=== PATIENT | male | born 1980 | race Caucasian/White ===

== ENCOUNTER 2021-08-13 13:43 | Outpatient (REF) | payer OTHER, SELFPAY ==
--- NOTE | ~2021-08-13 | MR_ITS ---
EXAMINATION: MR BRAIN WITHOUT AND WITH CONTRAST CLINICAL INFORMATION: Right eye blurred vision. Headaches. COMPARISON: MRI dated 11/06/2020. TECHNIQUE: Multiplanar, multisequence imaging of the brain was performed before and after the intravenous administration of 8 mL of Gadavist. FINDINGS: No diffusion abnormalities are identified to suggest an acute infarct. The ventricles are normal in size. No mass effect or midline shift is seen. A subcentimeter focus of T2 hyperintense signal change in the right frontal centrum semiovale is stable, measuring 1.3 cm CC x 0.6 cm AP. There is an additional punctate focus of T2 hyperintensity in the subcortical white matter of the right cingulate gyrus. The corpus callosum appears normal. No extra-axial fluid collections are seen. The brainstem and cerebellum are normal. There is no abnormal parenchymal or leptomeningeal enhancement. The gradient refocused acquisition demonstrates no pathologic magnetic susceptibility artifact to indicate underlying acute or chronic blood products. Although not targeted for evaluation, the orbits are grossly normal. The craniovertebral junction, marrow signal, and midline structures are normal. The major intracranial flow-voids at the level of the solomon of [place] are preserved. The dural venous sinus flow-voids are maintained. The mastoid air cells are well aerated. There are retention cysts along the floors of the maxillary sinuses with mild ethmoid sinus mucosal thickening. MR/MR head/brain wo/w con IMPRESSION: Stable nonspecific white matter signal changes in the right frontal pathak radiata and in the subcortical white matter of the right cingulate gyrus. No abnormal enhancement. No new white matter signal abnormalities or acute process.
== END 2021-08-13 13:44 | disposition home or self-care (01) ==
LOC: HO.MRI 13:43
PROVIDERS: PCP Physician Assistant Medical; Visit Provider Psychiatry & Neurology Neurology
DX: H46.9 Unspecified optic neuritis (principal); G37.9 Demyelinating disease of central nervous system, unspecified
CPT/HCPCS: 70553; A9585

== ENCOUNTER 2025-05-08 14:29 | Outpatient (AMB) | payer OTHER, SELFPAY ==
--- NOTE | 2025-05-08 14:31 | A.OFFVIS_ITS ---
Vital Signs 05/08/25 14:33 Height 5 ft 7 in Weight 186 lb 4.65 oz BMI 29.2 BP 108/64 Blood Pressure Location Rt brachial Position Sitting Pulse 89 Pulse Source Pulse Oximeter Pulse Oximetry (%) 96 Oxygen Delivery Method Room Air Intake Visit Reasons: Elevated alkaline phosphate level Intake Note: New patient externally referred by PCP for Elevated Alkaline Phosphate Level. Scrum Product Owner Required: No Accompanied by: Self / Same As Patient Allergies No Known Allergies Allergy (Verified 05/08/25 14:33) Medication List - Last Reconciled 05/08/25 by Rohit Readron MD cholecalciferol (vitamin D3) 125 mcg PO DAILY magnesium glycinate mg PO omega 9-csw-[id number]-fish oil 1,200 (144-216) mg (Fish Oil) caps PO vitamin K2 100 mcg PO DAILY whey protein concentrate mg PO HPI Comments Details: 44-year-old male sent to endocrinology for evaluation of alkaline phosphatase level elevated at 180. Apparently, patient saw endocrinology at [facility]. Office visit notes from that appointments are not available at time of consultation. Patient denies history of fracture. Patient denies bone pain. Patient has occasional headache. Patient denies loss of hearing. No bone specific alk phos Had nl PSA The patient is a 44-year-old male presenting with elevated alkaline phosphatase levels for evaluation. The elevated alkaline phosphatase was initially discovered during a routine blood test approximately ten years ago. Subsequent investigations included a bone density scan revealing osteopenia and a vitamin D deficiency, which was treated with high-dose vitamin D supplementation. Despite vitamin D supplementation, the alkaline phosphatase levels remained elevated, prompting further evaluation by an magnetic testing technician. The patient underwent a liver ultrasound and a bone scan, both of which were reported as normal. The patient has been advised to undergo fractionated alkaline phosphatase testing to determine the source of the elevation. 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 An MRI revealed a white matter lesion in the brain, initially suspected to be multiple sclerosis, but later deemed benign by a neurologist. The patient has a family history of amyotrophic lateral sclerosis (ALS) and reports occasional headaches and muscle pain attributed to gym activities. He denies any bone pain or fractures. The patient has been informed of a possible diagnosis of Paget's disease due to the persistent elevation of alkaline phosphatase, although no definitive diagnosis has been made. He is currently being monitored for pre-diabetes, with an A1c level of 5.8%. - Vitamin D: 5,000 IU daily for vitamin D deficiency We will also check [facility] Medical History (Updated 05/08/25 @ 14:42 by Rohit Reardon MD) Blood alkaline phosphatase increased compared with prior measurement Surgical History Hx of wisdom tooth extraction Family History Mother Diabetes Father Glaucoma Social History Alcohol intake: current Alcohol intake frequency: holidays/special occasions only Patient Tobacco Use Status: Never used Tobacco Physical Exam Vital Signs: Last Vital Signs Pulse 89 05/08/25 14:33 BP 108/64 05/08/25 14:33 Pulse Ox 96 05/08/25 14:33 Oxygen Delivery Method Room Air 05/08/25 14:33 BMI result Body Mass Index 29.2 Const Other: The absence of enlarged skull or warmness over the skull. Absence of both extremities. Assessment & Plan Assessment & Plan (1) Blood alkaline phosphatase increased compared with prior measurement: Code(s): R74.8 - Abnormal levels of other serum enzymes Category: Medical Plan: This is a 44-year-old male with a history of reported increased alk-phos. Do not have prior records from previous consult. We will request records from previous endocrinology appointment in [place]. We will also check alkaline phosphatase bone specific as well as repeat 25 hydroxy vitamin-D. Further workup based on the above. We will also try to request bone scan that was previously done at [place] several years ago 1. Elevated alkaline phosphatase The patient has a long-standing elevation in alkaline phosphatase levels, initially discovered during routine testing. Despite vitamin D supplementation, levels remain elevated. A fractionated alkaline phosphatase test is planned to determine the source of elevation. Previous liver ultrasound and bone scan were normal, reducing the likelihood of liver or bone pathology. Monitoring and furth er evaluation for Paget's disease are considered, although unlikely considering normal bone scan of the past and no definitive diagnosis has been made. During the consultation, I discussed with the patient the potential causes of elevated alkaline phosphatase, including Paget's disease, and the need for fractionated testing to determine the source. We reviewed the normal results of previous liver ultrasound and bone scan, and I explained that these findings reduce the likelihood of significant liver or bone pathology. I advised continued vitamin D supplementation and monitoring for osteopenia. We also discussed the benign nature of the white matter lesion in the brain and the management of pre-diabetes through lifestyle modifications. Follow-up was planned to reassess the alkaline phosphatase levels and review any new findings. - Continue taking vitamin D as prescribed. - Schedule a blood test for fractionated alkaline phosphatase levels. - Monitor blood sugar levels and maintain a healthy lifestyle to manage pre- diabetes. - Follow up in three months to review test results and discuss further management. T The patient had an opportunity to ask questions regarding treatment plan. The patient expressed understanding and agreement with the above treatment plan. Patient was informed and verbally consented to the use of an ambient scribe for clinic note documentation during this visit. Orders: Orders Alkaline Phosphatase Bone Today R74.8 - Abnormal levels of other serum enzymes Vitamin D 25-OH Total Today R74.8 - Abnormal levels of other serum enzymes Coding Level of Care Code New Pt Level 4 (12072) Diagnoses Blood alkaline phosphatase increased compared with prior measurement R74.8
[2025-05-08 14:33] VITALS: BP 108/64; PULSE 89; O2SAT 96; BMI 29.2
--- OUTSIDE RECORDS SUMMARY | 2025-05-08 18:14 | XMS_ITS | Clinical Summary ---
Author Organization [facility] [address] [facility] Building Address [address] [place] [address] Phone Care Team Providers Care Electronic Controls Repairer Supervisor Name Role Phone Quyen Gurrola MD Primary Care Provider [phone] Allergies Active Allergy Reactions Criticality Noted Date Comments Clindamycin 04/19/2017 Rash with oral but ok with topical Medications cholecalciferol (VITAMIN D-3) 25 mcg (1,000 unit) tablet Take 5 tablets (5,000 Units total) by mouth 1 (one) time each day. Active famotidine (PEPCID) 20 mg tablet Take 1 tablet (20 mg total) by mouth. 3 Active MAGNESIUM CITRATE ORAL Take by mouth. Ac tive CREATINE MONOHYDRATE ORAL Take 5 g by mouth 1 (one) time each day. With whey Active ASHWAGANDHA EXTRACT ORAL Take 1 tablet by mouth 1 (one) time each day. Active clindamycin (CLEOCIN T) 1 % lotionIndication s:Acne, unspecified acne type Apply topically 1 (one) time each day. 60 mL 1 5 06/10/20 25 Active famotidine (PEPCID) 20 mg tabletIndication s:Gastroesophage al reflux disease, unspecified whether esophagitis present Take 1 tablet (20 mg total) by mouth 2 (two) times a day. 60 tablet 1 5 Active Additional Information Patient not taking.Reported on 02/01/2025 hydrOXYzine HCL (ATARAX) 10 mg tablet Take 1 tablet (10 mg total) by mouth at bedtime as needed for itching. 90 tablet 5 07/31/20 25 Active Active Problems Problem Noted Date Diagnosed Date Burping 06/14/2024 GERD (gastroesophageal reflux disease) 4 Postprandial epigastric pain 06/14/2024 Pure hypercholesterolemia 02/01/2024 Osteopenia 03/15/2023 Anxiety 10/28/2020 Snoring 03/10/2019 Overview (06/14/2024): 02/2019 Home Sleep Study did not reveal sleep apnea or nocturnal hypoxia. Vitamin D deficiency 02/27/2019 Elevated alkaline phosphatase level 08/29/2015 Encounters Date Type Department Care Team Description 05/08/2025 Telephone Internal Medicine - [facility] [address] [place] [address] Quyen Gurrola MD from Last 3 Months Immunizations Name Administration Dates Next Due HPV 9-valent (Gardisil) 9yo to less than 46yo 10/13/2023,06/12/2023,02/10/2022 Influenza Quadravalent, MDCK , 0.5ml, preservative free (Flucelvax) 6mo and older 07/19/2023 Influenza trivalent, 0.5mL, preservative free (Fluarix; FluLaval; Fluzone) ages 6mo and older (Afluria) 3 years and older 06/10/2022 Burst Media SARS-CoV-2 COVID-19, mRNA, LNP-S, preservative free 05/04/2021 Tdap Tetanus diptheria acell ular pertussis (Boostrix; Adacel) 7yo and older 10/04/2017 Surgical History Surgery Date Site/Laterality Comments WISDOM TOOTH EXTRACTION PROCEDURE: HISTORICAL WISDOM TEETH EXTRACTION Medical History Medical History Date Comments Gastritis DX:Gastritis GERD (gastroesophageal reflux disease) DX:GERD (gastroesophageal reflux disease) Postprandial epigastric pain DX: Postprandial epigastric pain Burping DX:Burping H/O Helicobacter infection DX:H/ O Helicobacter infection Heartburn DX:Heartburn Postprandial epigastric pain DX: Postprandial epigastric pain Abnormal large bowel motility DX :Abnormal large bowel motility Family History Medical History Relation Name Comments No Known Problems Brother 1 ALS Brother 2 No Known Problems Brother 3 No Known Problems Brother 4 Glaucoma Father Diabetes Mother No Known Problems Sister 1 No Known Problems Sister 2 Relation Name Status Comments Brother 1 Alive x4 - Healthy Brother 2 Brother 3 Alive Brother 4 Alive Father Alive Glaucoma Mother Alive DM Sister 1 Alive x2 - Healthy Sister 2 Alive Social History Tobacco Use Types Packs/Day Years Used Date Smoking Tobacco: Never Smokeless Tobacco: Never Tobacco Cessation:Counseling Given: Not Answered Alcohol Use Standard Drinks/Week Comments No 0 (1 standard drink = 0.6 oz pur e alcohol) Sex and Gender Information Value Date Recorded Sex Assigned at Not on file Legal Sex Male 9:14 PM EST Gender Identity Male 12/13/2024 1:01 AM EDT Sexual Orientation Straight 12/13/2024 1: 01 AM EDT Obstetrics History Last Filed Vital Signs Vital Sign Reading Time Taken Comments Blood Pressure 108/54 02/01/2025 11:57 AM EDT Pulse 62 02/01/2025 11:57 AM EDT Temperature - - Respiratory Rate 16 02/01/2025 11:57 AM EDT Oxygen Saturation - - Inhaled Oxygen Concentration - - Weight 82.1 kg (181 lb) 02/01/2025 11:57 AM EDT Height 170.2 cm (5' 7 ) 03/21/2024 4:06 PM EDT Body Mass Index 28.35 03/21/2024 4:06 PM EDT Plan of Treatment Upcoming Encounters Date Type Department Care Team (Late st Contact Info) Description 05/23/2025 11:00 AM EDT Consult Orthopedic Surgery - [place] [id number] [phone] Genaro Fink DPM [address] [address] 02/05/2026 4:00 PM EDT Office Visit [facility] - [facility] [address] [place], [place] [phone] Quyen Gurrola MD [address] [place], [place] Health Maintenance Due Date Last Done Comments Hepatitis B Vaccines (1 of 3 - 19+ 3-dose series) 2001 Hepatitis C Screening 08/01/2022 Social Influencers of Health Screening 08/01/2022 Depression Screening 08/23/2024 COVID-19 Vaccine (3 - 2024-2 6 season) 2025 05/04/2021, 04/04/2021 Influenza Vaccine (#1) 2025 , 07/19/2023, 06/10/2022 DTaP,Tdap,and Td Vaccines (2 - Td or Tdap) 10/04/2027 10/04/2017 Cholesterol Screening (Lipid Panel) 02/06/2030 02/06/2025, 02/02/2024, 02/02/2024 HPV Vaccines Completed 10/13/2023, 06/12/2023, 02/10/2022 HIV Screening Completed 02/06/2025, 02/02/2024 HIB Vaccines Aged Out No longer eligi ble based on patient's age to complete this topic Hepatitis A Vaccines Aged Out No long er eligible based on patient's age to complete this topic IPV Vaccines Aged Out No longer eligi ble based on patient's age to complete this topic MMR Vaccines Aged Out No longer eligi ble based on patient's age to complete this topic Meningococcal ACWY Vaccine Aged Out N o longer eligible based on patient's age to complete this topic Meningococcal B Vaccine Aged Out No l onger eligible based on patient's age to complete this topic Pneumococcal Vaccine: Pediatrics (0 to 5 Years) and At-Risk Patients (6 to 49 Years) Aged Out No longer eligible b ased on patient's age to complete this topic RSV Immunization Patients Under 20 months Aged Out No longer eligible b ased on patient's age to complete this topic Varicella Vaccines Aged Out No longer eligible based on patient's age to complete this topic Procedures Procedure Name Priority Date/Time Associated Diagnosis Comments CHLAMYDIA TRACHOMATIS AND NEISSERIA GONORRHOEAE PCR Routine 02/13/2025 10:05 AM EDT Screen for STD (sexually transmitted disease) VITAMIN B12 AND FOLATE Routine 9:56 AM EDT B12 deficiency VITAMIN D 25 HYDROXY Routine 02/06/2025 9:56 AM EDT Vitamin D deficiency COMPREHENSIVE METABOLIC PANEL Routine 02/06/2025 9:56 AM EDT B12 deficiency LIPID PANEL WITH REFLEX TO DIRECT LDL Routine 02/06/2025 9:56 AM EDT B12 deficiency THYROID STIMULATING HORMONE WITH REFLEX TO FREE T4 AND FREE T3 Routine 02/06/2025 9:56 AM EDT Insomnia, unspecified type PROSTATE SPECIFIC ANTIGEN SCREEN Routine 02/06/2025 9:56 AM EDT Family hx of prostate cancer C-REACTIVE PROTEIN Routine 02/06/2025 9: 56 AM EDT Alopecia HEMOGLOBIN A1C Routine 02/06/2025 9:56 AM EDT Health maintenance examination HIV 1, 2 ANTIBODY, P24 ANTIGEN WITH REFLEX TO DIFFERENTIATION Routine 02/06/2025 9:56 AM EDT Screen for STD (sexually transmitted disease) TREPONEMA PALLIDUM ANTIBODY WITH REFLEX TO RPR AND PARTICLE AGGLUTINATION Routine 02/06/2025 9:56 AM EDT Screen for STD (sexually transmitted disease) HERPES SIMPLEX VIRUS 1 AND 2 PCR, QUALITATIVE Routine 02/06/2025 9:56 AM EDT Screen for STD (sexually transmitted disease) from Last 3 Months Results * Chlamydia trachomatis and Neisseria gonorrhoeae molecular study (02/13/2025 10:05 AM EDT) Neisseria gonorrhoeae PCR Negative Negative LAB MOLECULAR DIAGNOSTICS METHOD 02/13/2025 2:33 PM EDT [facility] Chlamydia trachomatis PCR Negative Negative LAB MOLECULAR DIAGNOSTICS METHOD 02/13/2025 2:33 PM EDT [facility] Urine First stream urine specimen / Unknown Non-blood Collection / Unknown 02/13/2025 10:05 AM EDT 02/13/2025 10:05 AM EDT [facility] MICROBIOLOGY - GENE RAL ORDERABLES Final Result Performing Organization Address [facility]/ZIP Co de Phone Number [facility] [address] [place] [address], * Prostate specific antigen screen (02/06/2025 9:56 AM EDT) PSA 0.79 0.00 - 4.00 ng/mL LAB CHEMISTRY METHOD 02/06/2025 4:40 PM EDT [facility] Blood Venous blood specimen / Unknown Venipuncture / Unknown 02/06/2025 9:56 AM EDT 02/06/2025 9:56 AM EDT Narrative [facility] - 02/06/2025 4:40 PM EDT The Siemens Advia Centaur Chemiluminescent Immunoassay is used. Results obtained with different assay methods or kits cannot be used interchangeably. Results cannot be interpreted as absolute evidence of the presence or absence of malignant disease. [facility] BLOOD ORDERABLES Fi nal Result Performing Organization Address [facility] de Phone Number [facility] [address] [place] [address], * HIV 1,2 antibody, p24 antigen with reflex to differentiation (02/06/2025 9:56 AM EDT) Pathologist [facility] HIV Combo AB/AG Negative Negative LAB CHEMISTRY METHOD 02/06/2025 5:20 PM EDT [facility] Blood Venous blood specimen / Unknown Venipuncture / Unknown 02/06/2025 9:56 AM EDT 02/06/2025 9:56 AM EDT Narrative [facility] - 02/06/2025 5:20 PM EDT This assay is a 4th generation assay allowing for earlier detection of HIV infection by detecting the presence of the HIV-1 p24 antigen as well as the traditional antibodies to HIV type 1 (including group O) and type 2. Use of a 4th generation assay is the current CDC recommendation for HIV screening. [facility] BLOOD ORDERABLES Fi nal Result Performing Organization Address [facility] Co de Phone Number [facility] [address] [place] [address], [place] [phone] * Treponema pallidum antibody with reflex to RPR and particle agglutination (02/06/2025 9:56 AM EDT) T. Pallidum Antibodies Negative Negative LAB CHEMISTRY METHOD 02/06/2025 6:15 PM EDT [facility] Blood Venous blood specimen / Unknown Venipuncture / Unknown 02/06/2025 9:56 AM EDT 02/06/2025 9:56 AM EDT [facility] BLOOD ORDERABLES Fi nal Result Performing Organization Address [facility] de Phone Number [facility] [address] [place] [address], [place] [phone] * Thyroid stimulating hormone with reflex to free t4 and free t3 (02/06/2025 9:56 AM EDT) TSH 1.62 0.40 - 4.00 mcIU/mL LAB CHEMISTRY METHOD 02/06/2025 6:04 PM EDT [facility] Blood Venous blood specimen / Unknown Venipuncture / Unknown 02/06/2025 9:56 AM EDT 02/06/2025 9:56 AM EDT [facility] BLOOD ORDERABLES Fi nal Result Performing Organization Address [facility] Co de Phone Number [facility] [address] [place] [address], [place] [phone] * (ABNORMAL) Vitamin B12 and folate (02/06/2025 9:56 AM EDT) Pathologist [facility] Vitamin B-12 353 250 - 900 pcg/mL LAB CHEMISTRY METHOD 02/06/2025 3:56 PM EDT [facility] Folate 18.7(H) 2.8 - 17.0 ng/ml LAB CHEMISTRY METHOD 02/06/2025 3:56 PM EDT [facility] Blood Venous blood specimen / Unknown Venipuncture / Unknown 02/06/2025 9:56 AM EDT 02/06/2025 9:56 AM EDT [facility] BLOOD ORDERABLES Fi nal Result [facility] [address] [place] [address], * (ABNORMAL) Lipid panel with reflex to direct LDL (02/06/2025 9:56 AM EDT) [facility] Cholesterol 199 0 - 200 mg/dL LAB CHEMISTRY METHOD 02/06/2025 3:56 PM EDT [facility] Triglycerides 57 0 - 150 mg/dL LAB CHEMISTRY METHOD 02/06/2025 3:56 PM T [facility] HDL 52 >=40 mg/dL LAB CHEMISTRY METHOD 02/06/2025 3:56 PM EDT [facility] LDL Calculated 136(H) 0 - 100 mg/dL LAB CHEMISTRY METHOD 02/06/2025 3:56 PM EDT [facility] VLDL Cholesterol Paulo 11.4 mg/dL LAB CHEMISTRY METHOD 02/06/2025 3:56 PM EDT [facility] Non HDL Chol. (LDL+VLDL) 147(H) <145 mg/dL LAB CHEMISTRY METHOD 02/06/2025 3:56 PM EDT [facility] Chol/HDL Ratio 3.8 0.0 - 4.4 LAB CHEMISTRY METHOD 02/06/2025 3:56 PM EDT [facility] Blood Venous blood specimen / Unknown Venipuncture / Unknown 02/06/2025 9:56 AM EDT 02/06/2025 9:56 AM EDT [facility] BLOOD ORDERABLES Fi nal Result Performing Organization Address [facility]/ZIP Co de Phone Number [facility] [address] [place] [address], [place] [phone] * Herpes simplex virus 1 and 2 molecular study, qualitative (02/06/2025 9:56 AM EDT) Specimen Source Blood - Plasma 02/08/2025 10:46 AM EDT [facility] Herpes simplex Virus I Not detected Not detected 02/08/2025 10:46 AM EDT [facility] Herpes simplex Virus II Not detected Not detected 02/08/2025 10:46 AM EDT [facility] Comment: This test utilizes a real-time polymerase chain reaction procedure to amplify and detect portions of the herpes simplex virus glycoprotein G genes. The analytical sensitivity of this assay is 50 copies/mL. A Not detected result does not rule out infection. This test uses commercial reagents that have not been approved or cleared by the FDA. The FDA has determined that such clearance or approval is not necessary. The performance characteristics of this procedure were determined by [facility]. This test is performed pursuant to a license agreement with [employer] Test performed at [facility], [address] , [place] [address] Lolis Jarvis MD, PhD - Trauma Surgeon Blood Venous blood specimen / Unknown Venipuncture / Unknown 02/06/2025 9:56 AM EDT 02/06/2025 9:56 AM EDT [facility] MICROBIOLOGY - GENE RAL ORDERABLES Final Result Performing Organization Address City/[facility]/ZIP Co de Phone Number [facility] [address] [place] [address] * (ABNORMAL) Vitamin D 25 hydroxy (02/06/2025 9:56 AM EDT) [facility] Vit D, 25-Hydroxy 87.1(H) 30.0 - 80.0 ng/mL LAB CHEMISTRY METHOD 02/06/2025 4:38 PM EDT [facility] Blood Venous blood specimen / Unknown Venipuncture / Unknown 02/06/2025 9:56 AM EDT 02/06/2025 9:56 AM EDT [facility] BLOOD ORDERABLES Fi nal Result Performing Organization Address City/[facility]/ZIP Co de Phone Number [facility] [address] [place] [address], [place] [phone] * C-reactive protein (02/06/2025 9:56 AM EDT) [facility] C-Reactive Protein <0.29 <=0.50 mg/dL LAB CHEMISTRY METHOD 02/06/2025 3:56 PM EDT [facility] Blood Venous blood specimen / Unknown Venipuncture / Unknown 02/06/2025 9:56 AM EDT 02/06/2025 9:56 AM EDT [facility] BLOOD ORDERABLES Fi nal Result [facility] [address] [place] [address], [place] [phone] * Hemoglobin A1c (02/06/2025 9:56 AM EDT) [facility] Hemoglobin A1C 5.8 <6.5 % LAB CHEMISTRY METHOD 02/06/2025 1:35 PM EDT [facility] Mean Bld Glu Estim. 120 mg/dL LAB CHEMISTRY METHOD 02/06/2025 1:35 PM EDT [facility] Blood Venous blood specimen / Unknown Venipuncture / Unknown 02/06/2025 9:56 AM EDT 02/06/2025 9:56 AM EDT [facility] BLOOD ORDERABLES Fi nal Result [facility] [address] [place] [address], * (ABNORMAL) Comprehensive metabolic panel (02/06/2025 9:56 AM EDT) Sodium 139 133 - 145 mmol/L LAB CHEMISTRY METHOD 02/06/2025 3:56 PM [facility] Potassium 4.0 3.5 - 5.5 mmol/L LAB CHEMISTRY METHOD 02/06/2025 3:56 PM [facility] Chloride 107 96 - 110 mmol/L LAB CHEMISTRY METHOD 02/06/2025 3:56 PM [facility] CO2 25 21 - 32 mmol/L LAB CHEMISTRY METHOD 02/06/2025 3:56 PM [facility] Anion Gap 7 3 - 11 LAB CHEMISTRY METHOD 02/06/2025 3:56 PM [facility] Glucose 100 70 - 100 mg/dL LAB CHEMISTRY METHOD 02/06/2025 3:56 PM [facility] BUN 20 5 - 25 mg/dL LAB CHEMISTRY METHOD 02/06/2025 3:56 PM [facility] Creatinine 1.06 0.70 - 1.30 mg/dL LAB CHEMISTRY METHOD 02/06/2025 3:56 PM [facility] eGFR 90 >=60 mL/min/1. 73m2 LAB CHEMISTRY METHOD 02/06/2025 3:56 PM [facility] Comment:Calculation based on the Chronic Kidney Disease Epidemiology Collaboration (CKD-EPI) equation refit without adjustment for race. BUN/Creatinine Ratio 18.9 LAB CHEMISTRY METHOD 02/06/2025 3:56 PM EDT [facility] Calcium 8.8 8.5 - 10.5 mg/dL LAB CHEMISTRY METHOD 02/06/2025 3:56 PM EDT [facility] AST (SGOT) 25 10 - 42 unit/L LAB CHEMISTRY METHOD 02/06/2025 3:56 PM EDT [facility] ALT (SGPT) 42 10 - 60 unit/L LAB CHEMISTRY METHOD 02/06/2025 3:56 PM EDT [facility] Alkaline Phosphatase 180(H) 42 - 121 unit/L LAB CHEMISTRY METHOD 02/06/2025 3:56 PM EDT [facility] Total Protein 7.2 6.0 - 8.0 g/dL LAB CHEMISTRY METHOD 02/06/2025 3:56 PM EDT [facility] Albumin 3.9 3.2 - 5.0 g/dL LAB CHEMISTRY METHOD 02/06/2025 3:56 PM EDT [facility] Total Bilirubin 0.6 0.0 - 1.4 mg/dL LAB CHEMISTRY METHOD 02/06/2025 3:56 PM T [facility] Blood Venous blood specimen / Unknown Venipuncture / Unknown 02/06/2025 9:56 AM EDT 02/06/2025 9:56 AM EDT [facility] BLOOD ORDERABLES Fi nal Result [facility] [address] [place] [address], from Last 3 Months Insurance [facility] [place] [address] Care Teams Electronic Controls Repairer Supervisor Relationship Specialty Start Date End Date Quyen Gurrola MD [address] [place] [address] PCP - General Internal Medicine 04/24/25
--- OUTSIDE RECORDS SUMMARY | 2025-05-08 18:14 | XMS_ITS | Encounter Summary ---
Author Organization [facility] Address [address] [place] [address] Care Team Providers Care Bit Sharpener Name Role Phone Quyen Gurrola MD Primary Care Provider Reason for Visit * Reason Onset Date Comments Additional Info Needed 05/08/2025 Encounter Details Date Type Department Care Team (Late st Contact Info) Description 05/08/2025 Telephone Internal Medicine - [facility] [address] [place] [address] Quyen Gurrola MD [address] [facility] [place] [phone] Social History Tobacco Use Types Packs/Day Years Used Date Smoking Tobacco: Never Smokeless Tobacco: Never Alcohol Use Standard Drinks/Week Comments No 0 (1 standard drink = 0.6 oz pur e alcohol) Sex and Gender Information Value Date Recorded Sex Assigned at Not on file Legal Sex Male 9:14 PM EST Gender Identity Male 12/13/2024 1:01 AM EDT Sexual Orientation Straight 12/13/2024 1: 01 AM EDT documented as of this encounter Progress Notes * Sonya Reilly - 05/08/2025 1:49 PM EDT Kellen with [facility] calling regarding patient. We sent a referral over for the patient and they are needing the labs, office visit notes pertaining to the referralCindy Foreman phone: [phone] documented in this encounter Plan of Treatment Upcoming Encounters Date Type Department Care Team (Late st Contact Info) Description 05/23/2025 11:00 AM EDT Consult Orthopedic Surgery - [place] [address] [phone] Genaro Fink, DPM [address] [address] 02/05/2026 4:00 PM EDT Office Visit Internal Medicine - [facility] [address] [place], [place] [phone] Quyen Gurrola MD [address] [place] [address] documented as of this encounter Visit Diagnoses Not on filedocumented in this encounter Care Teams Bit Sharpener Relationship Specialty Start Date End Date Quyen Gurrola MD [address] [place], [place] PCP - General Internal Medicine 04/24/25 documented as of this encounter
== END 2025-05-08 15:19 | disposition home or self-care (01) ==
LOC: HO.ENCR 14:29
PROVIDERS: PCP Internal Medicine; Visit Provider Internal Medicine Endocrinology, Diabetes & Metabolism
DX: R74.8 Abnormal levels of other serum enzymes (principal)
CPT/HCPCS: 99204

== ENCOUNTER → 2025-05-08 14:29 | Outpatient (BNVA) | payer OTHER, SELFPAY | PROVIDERS: PCP Internal Medicine; Visit Provider Internal Medicine Endocrinology, Diabetes & Metabolism | DX: R74.8 Abnormal levels of other serum enzymes (principal); M85.80 Other specified disorders of bone density and structure, unspecified site; E55.9 Vitamin D deficiency, unspecified; R73.03 Prediabetes | CPT/HCPCS: 99202 ==

== ENCOUNTER 2025-05-10 11:50 | Outpatient (REF) | payer OTHER, SELFPAY ==
--- OUTSIDE RECORDS SUMMARY | 2025-05-10 14:11 | XMS_ITS | Encounter Summary ---
Author Organization [facility] Address [address] [place] [address] Care Team Providers Care Marriage Counselor Minister Name Role Phone Quyen Gurrola MD Primary Care Provider [phone] Reason for Visit * Reason Onset Date Comments Additional Info Needed 05/08/2025 Encounter Details Date Type Department Care Team (Late st Contact Info) Description 05/08/2025 Telephone Internal Medicine - [facility] [address] [place] [address] Quyen Gurrola MD [address] [facility] [place] [address] Social History Tobacco Use Types Packs/Day Years [...] - 05/08/2025 1:49 PM EDT Kellen with [facility] calling regarding patient. We sent a referral over for the patient and they are needing the labs, office visit notes pertaining to the referralCindy Foreman phone: [phone] documented in this encounter Plan of Treatment Upcoming Encounters Date Type Department Care Team (Late st Contact Info) Description 05/23/2025 11:00 AM EDT Consult Orthopedic Surgery - [place] [address] [phone] Genaro Fink, DPM [address] [address] 02/05/2026 4:00 PM EDT Office Visit Internal Medicine - [facility] [address] [place], [place] [phone] Quyen Gurrola MD [address] [place] [address] documented as of this encounter Visit Diagnoses Not on filedocumented in this encounter Care Teams Marriage Counselor Minister Relationship Specialty Start Date End Date Quyen Gurrola MD [address] [place], [place] PCP - General Internal Medicine 04/24/25 documented as of this encounter
--- OUTSIDE RECORDS SUMMARY | 2025-05-10 14:11 | XMS_ITS | Clinical Summary ---
Author Organization [facility] [address] [facility] Building Address [address] [place] [address] Phone Care Team Providers Care Engineer Second Assistant Name Role Phone Quyen Gurrola MD Primary Care Provider [phone] Allergies Active Allergy Reactions Criticality Noted Date [...] Telephone Internal Medicine - [facility] [address] [place] [address] Quyen Gurrola MD from Last 3 Months Immunizations Name Administration Dates Next Due HPV 9-valent (Gardisil) 9yo to less than 46yo 10/13/2023,06/12/2023,02/10/2022 Influenza Quadravalent, MDCK , 0.5ml, preservative free (Flucelvax) 6mo and older 07/19/2023 Influenza trivalent, 0.5mL, preservative free (Fluarix; FluLaval; Fluzone) ages 6mo and older (Afluria) 3 years and older 06/10/2022 [facility] SARS-CoV-2 COVID-19, mRNA, LNP-S, preservative free 05/04/2021 [...] 11:00 AM EDT Consult Orthopedic Surgery - [place] [address] [phone] Genaro Fink DPM [address] [address] 02/05/2026 4:00 PM EDT Office Visit Internal Medicine - [facility] [address] [place], [place] [phone] Quyen Gurrola MD [address] [place], [place] Health Maintenance Due Date Last Done [...] EDT Screen for STD (sexually transmitted disease) HIV 1, 2 ANTIBODY, P24 ANTIGEN WITH REFLEX TO DIFFERENTIATION Routine 02/06/2025 9:56 AM EDT Screen for STD (sexually transmitted disease) LIPID PANEL WITH REFLEX TO DIRECT LDL Routine 02/06/2025 9:56 AM EDT B12 deficiency from Last 3 Months or Most Recently Relevant to Health Maintenance Results * Chlamydia trachomatis and Neisseria gonorrhoeae molecular study (02/13/2025 10:05 AM EDT) Pathologist [facility] Neisseria gonorrhoeae PCR Negative Negative LAB MOLECULAR DIAGNOSTICS METHOD 02/13/2025 2:33 PM EDT [facility] Chlamydia trachomatis PCR Negative Negative LAB MOLECULAR DIAGNOSTICS METHOD 02/13/2025 2:33 PM EDT [facility] Urine First stream urine specimen / Unknown Non-blood Collection / Unknown 02/13/2025 10:05 AM EDT 02/13/2025 10:05 AM EDT [facility] MICROBIOLOGY - GENE RAL ORDERABLES Final Result [facility] [address] [place] [address], [place] [phone] * HIV 1,2 antibody, p24 antigen with reflex to differentiation (02/06/2025 9:56 AM EDT) Pathologist [facility] HIV Combo AB/AG Negative Negative LAB CHEMISTRY METHOD 02/06/2025 5:20 PM EDT [facility] Blood Venous blood specimen / Unknown Venipuncture / Unknown 02/06/2025 9:56 AM EDT 02/06/2025 9:56 AM EDT Narrative [facility] - 02/06/2025 5:20 PM EDT This assay is a 4th generation assay allowing for earlier detection of HIV infection by detecting the presence of the HIV-1 p24 antigen as well as the traditional antibodies to HIV type 1 (including group O) and type 2. Use of a 4th generation assay is the current CDC recommendation for HIV screening. us [facility] BLOOD ORDERABLES Fi nal Result [facility] [address] [place] [address], [place] [phone] * (ABNORMAL) Lipid panel with reflex to direct LDL (02/06/2025 9:56 AM EDT) Cholesterol 199 0 - 200 mg/dL LAB CHEMISTRY METHOD 02/06/2025 3:56 PM EDT [facility] Triglycerides 57 0 - 150 mg/dL LAB CHEMISTRY METHOD 02/06/2025 3:56 PM EDT [facility] HDL 52 >=40 mg/dL LAB CHEMISTRY METHOD 02/06/2025 3:56 PM EDT [facility] LDL Calculated 136(H) 0 - 100 mg/dL LAB CHEMISTRY METHOD 02/06/2025 3:56 PM EDT [facility] VLDL Cholesterol Paulo 11.4 mg/dL LAB CHEMISTRY METHOD 02/06/2025 3:56 PM EDT [facility] Non HDL Chol. (LDL+VLDL) 147(H) <145 mg/dL LAB CHEMISTRY METHOD 02/06/2025 3:56 PM EDT [facility] Chol/HDL Ratio 3.8 0.0 - 4.4 LAB CHEMISTRY METHOD 02/06/2025 3:56 PM EDT [facility] Blood Venous blood specimen / Unknown Venipuncture / Unknown 02/06/2025 9:56 AM EDT 02/06/2025 9:56 AM EDT [facility] BLOOD ORDERABLES Fi nal Result [facility] [address] [place] [address], [place] [phone] from Last 3 Months or Most Recently Relevant to Health Maintenance Insurance [facility] [employer] Care Teams Engineer Second Assistant Relationship Specialty Start Date End Date Quyen Gurrola MD [address] [facility] [place] [address] PCP - General Internal Medicine 04/24/25
== END 2025-05-10 11:51 | disposition home or self-care (01) ==
LOC: HO.10HDL 11:50
PROVIDERS: Visit Provider Internal Medicine Endocrinology, Diabetes & Metabolism
DX: R74.8 Abnormal levels of other serum enzymes (principal)
CPT/HCPCS: 36415; 82306; 84075

== ENCOUNTER 2025-05-17 08:38 | Outpatient (REF) | payer OTHER, SELFPAY ==
--- OUTSIDE RECORDS SUMMARY | 2025-05-17 09:10 | XMS_ITS | Encounter Summary ---
Author Organization [facility] Address [address] [place] [address] Care Team Providers Care Interactive Developer Name Role Phone Quyen Gurrola MD Primary Care Provider [phone] Reason for Visit * Reason Onset Date Comments Additional Info Needed 05/08/2025 Encounter Details Date Type Department Care Team (Late st Contact Info) Description 05/08/2025 Telephone Internal Medicine - [facility] [address] [place] [address] Quyen Gurrola MD [address] [place] [phone] Social History Tobacco Use Types Packs/Day Years [...] - 05/08/2025 1:49 PM EDT Kellen with [facility] calling regarding patient. We sent a referral over for the patient and they are needing the labs, office visit notes pertaining to the referralCindy Foreman phone: [phone] documented in this encounter Plan of Treatment Upcoming Encounters Date Type Department Care Team (Late st Contact Info) Description 05/23/2025 11:00 AM EDT Consult Orthopedic Surgery - [place] [address] [phone] Genaro Fink, DPM [address] [address] 02/05/2026 4:00 PM EDT Office Visit Internal Medicine - [facility] [address] [place], [place] [phone] Quyen Gurrola MD [address] [place] [address] documented as of this encounter Visit Diagnoses Not on filedocumented in this encounter Care Teams Interactive Developer Relationship Specialty Start Date End Date Quyen Gurrola MD [address] [place], [place] PCP - General Internal Medicine 04/24/25 documented as of this encounter
--- OUTSIDE RECORDS SUMMARY | 2025-05-17 09:11 | XMS_ITS | Clinical Summary ---
Author Organization [facility] [address] [facility] Building Address [address] [place] [address] Phone Care Team Providers Care Photographic Equipment Assembler Name Role Phone Quyen Gurrola MD Primary Care Provider [phone] Allergies Active Allergy Reactions Criticality Noted Date [...] Telephone Internal Medicine - [facility] [address] [place] [address] Quyen Gurrola MD from Last 3 Months Immunizations Name Administration Dates Next Due HPV 9-valent (Gardisil) 9yo to less than 46yo 10/13/2023,06/12/2023,02/10/2022 Influenza Quadravalent, MDCK , 0.5ml, preservative free (Flucelvax) 6mo and older 07/19/2023 Influenza trivalent, 0.5mL, preservative free (Fluarix; FluLaval; Fluzone) ages 6mo and older (Afluria) 3 years and older 06/10/2022 [facility] SARS-CoV-2 COVID-19, mRNA, LNP-S, preservative free 05/04/2021 [...] 11:00 AM EDT Consult Orthopedic Surgery - [place] [address] [phone] Genaro Fink DPM [address] [address] 02/05/2026 4:00 PM EDT Office Visit Internal Medicine - [facility] [address] [place], [place] [phone] Quyen Gurrola MD [address] [place], [place] Health Maintenance Due Date Last Done [...] Screening (Lipid Panel) 02/06/2030 02/06/2025, 02/02/2024, 02/02/2024 RSV Immunization Adult Patients (1 - 1-dose 75+ series) 2057 HPV Vaccines Completed 10/13/2023, 06/12/2023, 02/10/2022 HIV [...] Procedure Name Priority Date/Time Associated Diagnosis Comments HIV 1, 2 ANTIBODY, P24 ANTIGEN WITH REFLEX TO DIFFERENTIATION Routine 02/06/2025 9:56 AM EDT Screen for STD (sexually transmitted disease) LIPID PANEL WITH REFLEX TO DIRECT LDL Routine 02/06/2025 9:56 AM EDT B12 deficiency from Last 3 Months or Most Recently Relevant to Health Maintenance Results * HIV 1,2 antibody, p24 antigen with reflex to differentiation (02/06/2025 9:56 AM EDT) [facility] HIV Combo AB/AG Negative Negative LAB CHEMISTRY METHOD 02/06/2025 5:20 PM EDT [facility] Blood Venous blood specimen / Unknown Venipuncture / Unknown 02/06/2025 9:56 AM EDT 02/06/2025 9:56 AM EDT Narrative [facility] - 02/06/2025 5:20 PM [...] BABIN LAB BLOOD ORDERABLES Fi nal Result [facility] [address] [place] [address], [place] [phone] * (ABNORMAL) Lipid panel with reflex to direct LDL (02/06/2025 9:56 AM EDT) [facility] Cholesterol 199 0 - 200 mg/dL LAB CHEMISTRY METHOD 02/06/2025 3:56 PM EDT [facility] Triglycerides 57 0 - 150 mg/dL LAB CHEMISTRY METHOD 02/06/2025 3:56 PM EDT [facility] HDL 52 >=40 mg/dL LAB CHEMISTRY METHOD 02/06/2025 3:56 PM EDT [facility] LDL Calculated 136(H) 0 - 100 mg/dL LAB CHEMISTRY METHOD 02/06/2025 3:56 PM EDT [facility] VLDL Cholesterol Paulo 11.4 mg/dL LAB CHEMISTRY METHOD 02/06/2025 3:56 PM EDT [facility] Non HDL Chol. (LDL+VLDL) 147(H) <145 mg/dL LAB CHEMISTRY METHOD 02/06/2025 3:56 PM EDT [facility] Chol/HDL Ratio 3.8 0.0 - 4.4 LAB CHEMISTRY METHOD 02/06/2025 3:56 PM EDT [facility] Blood Venous blood specimen / Unknown Venipuncture / Unknown 02/06/2025 9:56 AM EDT 02/06/2025 9:56 AM EDT us [facility] LAB BLOOD ORDERABLES Fi nal Result [facility] [address] [place] [address], from Last 3 Months or Most Recently Relevant to Health Maintenance Insurance [facility] [employer] Care Teams Photographic Equipment Assembler Relationship Specialty Start Date End Date Quyen Gurrola MD [address] [facility] [place] PCP - General Internal Medicine 04/24/25
[2025-05-21 19:33] LABS: Testosterone, Free 94.4 pg/mL (35.0-155.0)
[2025-05-23 11:38] LABS: NTXCreaRU 20 mg/dL (20-320)
== END 2025-05-17 08:39 | disposition home or self-care (01) ==
LOC: HO.LAB 08:38
PROVIDERS: PCP Internal Medicine; Visit Provider Internal Medicine Endocrinology, Diabetes & Metabolism
DX: R74.8 Abnormal levels of other serum enzymes (principal)
CPT/HCPCS: 36415; 82523; 84100; 84402; 84403

== ENCOUNTER 2025-08-07 14:50 | Outpatient (AMB) | payer OTHER, SELFPAY ==
--- NOTE | 2025-08-07 14:56 | MHC.OFFVIS ---
Vital Signs 08/07/25 15:00 Height 5 ft 7 in Weight 188 lb 14.978 oz BMI 29.6 BP 92/54 L Blood Pressure Location Rt brachial Position Sitting Pulse 86 Pulse Source Pulse Oximeter Pulse Oximetry (%) 95 Oxygen Delivery Method Room Air Intake Visit Reasons: Elevated alkaline phosphate level Intake Note: Patient present today for Elevated Alkaline Phosphate Level. Polystyrene Bead Molder Required: No Accompanied by: Self / Same As Patient Allergies No Known Allergies Allergy (Verified 08/07/25 15:01) HPI Comments Details: 45-year-old male sent to endocrinology for evaluation of alkaline phosphatase level elevated at 180. Apparently, patient saw endocrinology at [facility]. Office visit notes from that appointments are not available at time of consultation. Patient denies history of fracture. Patient denies bone pain. Patient has occasional headache. Patient denies loss of hearing. No bone specific alk phos Had nl PSA The patient is a 44-year-old male presenting with elevated alkaline phosphatase levels for evaluation. The elevated alkaline phosphatase was initially discovered during a routine blood test approximately ten years ago. Subsequent investigations included a bone density scan revealing osteopenia and a vitamin D deficiency, which was treated with high-dose vitamin D supplementation. Despite vitamin D supplementation, the alkaline phosphatase levels remained elevated, prompting further evaluation by an deburring machine operator. The patient underwent a liver ultrasound and a bone scan, both of which were reported as normal. The patient has been advised to undergo fractionated alkaline phosphatase testing to determine the source of the elevation. 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 An MRI revealed a white matter lesion in the brain, initially suspected to be multiple sclerosis, but later deemed benign by a neurologist. The patient has a family history of amyotrophic lateral sclerosis (ALS) and reports occasional headaches and muscle pain attributed to gym activities. He denies any bone pain or fractures. The patient has been informed of a possible diagnosis of Paget's disease due to the persistent elevation of alkaline phosphatase, although no definitive diagnosis has been made. He is currently being monitored for pre-diabetes, with an A1c level of 5.8%. - Vitamin D: 5,000 IU daily for vitamin D deficiency Additional workup showed slightly elevated bone specific alkaline phosphatase level with suppressed urine NTX, normal phosphorus. Normal vitamin-D and normal testosterone [facility] Medical History (Updated 05/08/25 @ 14:42 by Rohit Reardon MD) Blood alkaline phosphatase increased compared with prior measurement Surgical History Hx of wisdom tooth extraction Family History Mother Diabetes Father Glaucoma Social History Alcohol intake: current Alcohol intake frequency: holidays/special occasions only Patient Tobacco Use Status: Never used Tobacco Physical Exam Vital Signs: Last Vital Signs Pulse 86 08/07/25 15:00 BP 92/54 L 08/07/25 15:00 Pulse Ox 95 08/07/25 15:00 Oxygen Delivery Method Room Air 08/07/25 15:00 BMI result Body Mass Index 29.6 Assessment & Plan Assessment & Plan (1) Blood alkaline phosphatase increased compared with prior measurement: Code(s): R74.8 - Abnormal levels of other serum enzymes Category: Medical Plan: This is a 44-year-old male with a history of reported increased alk-phos including bone specific alkaline phosphatase. Records from [facility] report a normal bone scan showing osteoarthritis with complete workup of thyroid, parathyroid, liver enzymes all within normal limits. Most likely diagnosis benign isolated elevation of bone specific alkaline phosphatase possibly related to physiologic bone remodeling or osteoarthritis. At this point, there is no need for any further endocrine workup or follow up. Patient returned to the care of his primary care provider returned back to endocrinology as needed Coding Level of Care Code Est Pt Level 3 (37819) Diagnoses Blood alkaline phosphatase increased compared with prior measurement R74.8
[2025-08-07 15:00] VITALS: BP 92/54; PULSE 86; O2SAT 95; BMI 29.6
--- OUTSIDE RECORDS SUMMARY | 2025-08-07 19:10 | XMS_ITS | Clinical Summary ---
Author Organization [facility] [address] [facility] Building Address [address] [place] [address] Phone Care Team Providers Care Long Chain Beamer Name Role Phone Quyen Gurrola MD Primary Care Provider Allergies Active Allergy Reactions Criticality Noted Date [...] each day. Active famotidine (PEPCID) 20 mg tabletIndication s:Gastroesophage al reflux disease, unspecified whether esophagitis present Take 1 tablet (20 mg total) by mouth 2 (two) times a day. 60 tablet 1 5 Active Additional Information Patient not taking.Reported on 02/01/2025 hydrOXYzine HCL (ATARAX) 10 mg tablet Take 1 tablet (10 mg total) by mouth at bedtime as needed for itching. 90 tablet 5 Active Active Problems Problem Noted Date Diagnosed Date [place] 06/14/2024 GERD (gastroesophageal reflux disease) 4 Postprandial epigastric pain 06/14/2024 Pure hypercholesterolemia 02/01/2024 Osteopenia 03/15/2023 Anxiety 10/28/2020 Snoring 03/10/2019 Overview (06/14/2024): 02/2019 Home Sleep Study did not reveal sleep apnea or nocturnal hypoxia. Vitamin D deficiency 02/27/2019 Elevated alkaline phosphatase level 08/29/2015 Encounters Date Type Department Care Team Description 05/24/2025 Results Follow-Up Internal Medicine - [address] [phone] Nya Fischer [place] 05/08/2025 Telephone Internal Medicine - [address] [phone] Quyen Gurrola MD from Last 3 Months Immunizations Immunization Administration Dates Next Due HPV 9-valent (Gardisil) 9yo to less than 46yo 10/13/2023,06/12/2023,02/10/2022 Influenza Quadravalent, MDCK , 0.5ml, preservative free (Flucelvax) 6mo and older 07/19/2023 Influenza trivalent, 0.5mL, preservative free (Fluarix; FluLaval; Fluzone) ages 6mo and older (Afluria) 3 years and older 06/10/2022 [facility] SARS-CoV-2 COVID-19, mRNA, LNP-S, preservative free 05/04/2021 [...] Orientation Straight 12/13/2024 1: 01 AM EDT Last Filed Vital Signs Vital Sign Reading [...] Care Team (Late st Contact Info) Description 02/05/2026 4:00 PM EDT [facility] [address] [place], [place] [phone] Quyen Gurrola MD [address] [place] [address] Health Maintenance Due Date Last Done Comments [...] Procedure Name Priority Date/Time Associated Diagnosis Comments EXTERNAL CLINICAL LAB 05/24/2025 EXTERNAL CLINICAL LAB 05/22/2025 EXTERNAL CLINICAL LAB 05/18/2025 HIV 1, 2 ANTIBODY, P24 ANTIGEN WITH REFLEX TO DIFFERENTIATION Routine 02/06/2025 9:56 AM EDT Screen for STD (sexually transmitted disease) LIPID PANEL WITH REFLEX TO DIRECT LDL Routine 02/06/2025 9:56 AM EDT B12 deficiency from Last 3 Months or Most Recently Relevant to Health Maintenance Results * External clinical lab (05/24/2025) Only the most recent of3 resultswithin the time period is included. Provider [facility] LAB BLOOD ORDERABLES Fin al Result * HIV 1,2 antibody, p24 antigen with reflex to differentiation (02/06/2025 9:56 AM EDT) [facility] HIV Combo AB/AG Negative Negative LAB CHEMISTRY METHOD 02/06/2025 5:20 PM EDT [facility] Blood Venous blood specimen / Unknown Venipuncture / Unknown 02/06/2025 9:56 AM EDT 02/06/2025 9:56 AM EDT Narrative [facility] - 02/06/2025 5:20 PM EDT [...] BABIN LAB BLOOD ORDERABLES Fi nal Result [facility] [address] [place] [address], * (ABNORMAL) Lipid panel with reflex to direct LDL (02/06/2025 9:56 AM EDT) [facility] Cholesterol 199 0 - 200 mg/dL LAB CHEMISTRY METHOD 02/06/2025 3:56 PM EDT [facility] Triglycerides 57 0 - 150 mg/dL LAB CHEMISTRY METHOD 02/06/2025 3:56 PM EDT [facility] HDL 52 >=40 mg/dL LAB CHEMISTRY METHOD 02/06/2025 3:56 PM EDT [facility] LDL Calculated 136(H) 0 - 100 mg/dL LAB CHEMISTRY METHOD 02/06/2025 3:56 PM EDT [facility] VLDL Cholesterol Paulo 11.4 mg/dL LAB CHEMISTRY METHOD 02/06/2025 3:56 PM EDT [facility] Non HDL Chol. (LDL+VLDL) 147(H) <145 mg/dL LAB CHEMISTRY METHOD 02/06/2025 3:56 PM EDT [facility] Chol/HDL Ratio 3.8 0.0 - 4.4 LAB CHEMISTRY METHOD 02/06/2025 3:56 PM EDT [facility] Blood Venous blood specimen / Unknown Venipuncture / Unknown 02/06/2025 9:56 AM EDT 02/06/2025 9:56 AM EDT us [facility] LAB BLOOD ORDERABLES Fi nal Result [facility] [address] [place] [address], [place] [phone] from Last 3 Months or Most Recently Relevant to Health Maintenance Insurance [facility] [employer] Care Teams Long Chain Beamer Relationship Specialty Start Date End Date Quyen Gurrola MD [address] [place] PCP - General Internal Medicine 04/24/25
== END 2025-08-07 15:18 | disposition home or self-care (01) ==
LOC: HO.ENCR 14:50
PROVIDERS: PCP Internal Medicine; Visit Provider Internal Medicine Endocrinology, Diabetes & Metabolism
DX: R74.8 Abnormal levels of other serum enzymes (principal)
CPT/HCPCS: 99213

== ENCOUNTER → 2025-08-07 14:50 | Outpatient (BNVA) | payer OTHER, SELFPAY | PROVIDERS: PCP Internal Medicine; Visit Provider Internal Medicine Endocrinology, Diabetes & Metabolism | DX: R74.8 Abnormal levels of other serum enzymes (principal) | CPT/HCPCS: 99212 ==